=== PATIENT | female | born 1960 | race Caucasian/White ===

== ENCOUNTER 2017-03-20 13:30 | Observation (INO) | payer OTHER, SELFPAY ==
[~2017-03-20] VITALS: Ht 152.4 cm; Wt 66.1 kg
[2017-03-20] MEDS ORDERED: SODIUM CHLORIDE 0.9% 1,000 ML IV ONE (15:03)
[2017-03-20] MEDS ORDERED: SODIUM CHLORIDE 0.9% 1,000ML IVBOLUS ONE (15:30)
[2017-03-20] MEDS ORDERED: SODIUM CHLORIDE FLUSH 10ML SYR IVF ONE (15:30)
[2017-03-20 15:40] LABS: WHITE BLOOD COUNT 10.4 x10^3/uL (3.4-10)
[2017-03-20 15:49] LABS: BLOOD UREA NITROGEN 13 mg/dL (7-18)
[2017-03-20 15:55] LABS: ASPARTATE AMINO TRANSFERASE 14 U/L (15-37)
[2017-03-20 15:56] LABS: IS PT STATUS REG ER OR PRE ER? YES
[2017-03-20] MEDS: ALBUTEROL SULFATE 2.5 MG/3 ML NPPB SCH ×2 (16:53→17:14)
[2017-03-20] MEDS ORDERED: ALBUTEROL/IPRATROPIUM 2.5MG/0.5MG, 3 ML ONE (16:53)
[2017-03-20] MEDS ORDERED: IPRATROPIUM 0.5 MG/2.5 ML INHA NPPB ONE (17:00)
[2017-03-20] MEDS ORDERED: ALBUTEROL SULFATE 2.5 MG/3 ML ONE (17:09)
[2017-03-20] MEDS ORDERED: AZITHROMYCIN 500 MG in SODIUM CHLORIDE 0.9% 250 ML IV ONE (18:00)
[2017-03-20] MEDS ORDERED: EPINEPHRINE 1 MG/ML, 1ML ONE (18:59)
[2017-03-20] MEDS ORDERED: EPINEPHRINE SYRINGE 0.1 MG/ML, 10ML ONE (18:59)
[2017-03-20 22:12] VITALS: BP 140/63
[2017-03-20] MEDS ORDERED: DIPHENHYDRAMINE 25 MG CAPSULE PO PRN (23:00)
[2017-03-20] MEDS ORDERED: DOCUSATE 100 MG CAPSULE PO PRN (23:00)
[2017-03-20] MEDS ORDERED: ENALAPRILAT 1.25 MG/ML, 2ML IVPush PRN (23:00)
[2017-03-20] MEDS ORDERED: ENOXAPARIN 40 MG/0.4 ML SQ SCH (23:00)
[2017-03-20] MEDS ORDERED: ACETAMINOPHEN 325 MG TABLET PO PRN (23:00)
[2017-03-21] MEDS: CEFDINIR 300 MG CAPSULE PO SCH ×2 (00:06→08:46)
[2017-03-21 01:12] VITALS: BP 132/76
[2017-03-21 06:30] LABS: HEMATOCRIT 42.1 % (34.6-47.8); WHITE BLOOD COUNT 10.3 x10^3/uL (3.4-10)
[2017-03-21 06:45] LABS: BLOOD UREA NITROGEN 11 mg/dL (7-18)
[2017-03-21] MEDS ORDERED: ALBUTEROL/IPRATROPIUM 2.5MG/0.5MG, 3 ML NPPB SCH (07:00)
[2017-03-21 07:02] VITALS: BP 157/62
[2017-03-21] MEDS ORDERED: AZITHROMYCIN 250 MG TABLET PO SCH (09:00)
[2017-03-21] MEDS ORDERED: ALBUTEROL/IPRATROPIUM 2.5MG/0.5MG, 3 ML NPPB PRN (11:00)
[2017-03-21 13:10] VITALS: BP 128/61
[2017-03-21] MEDS ORDERED: ALBUTEROL SULFATE 2.5 MG/3 ML NPPB PRN (16:00)
[2017-03-21] MEDS ORDERED: CEFD300C37 PO (16:44)
[2017-03-21] MEDS ORDERED: AZIT250T89 PO (16:44)
[2017-03-21] MEDS ORDERED: PRED10TA PO (16:44)
[2017-03-21] MEDS ORDERED: PNEUMOCOCCAL 23 VACCINE IM-VACC ONE (17:30)
== END 2017-03-21 18:20 | disposition home or self-care (01) ==
LOC: ED 16:56 → EDIP 18:54 → INTOOBSV 18:54 → 4WST 21:24
PROVIDERS: ADMIT Internal Medicine; ATTEND Internal Medicine
DX: J15.9 Unspecified bacterial pneumonia (principal); J96.01 Acute respiratory failure with hypoxia; I16.0 Hypertensive urgency; J44.1 Chronic obstructive pulmonary disease with (acute) exacerbation; I10 Essential (primary) hypertension; F41.9 Anxiety disorder, unspecified; Z23 Encounter for immunization
CPT/HCPCS: 36415; 71010; 80048; 80053; 81003; 83605; 84484; 85025; 85379; 87040; 90471; 90732; 93005; 94640; 96361; 96365; 96366; 96372; 97162; 99285; G0378; J0456; J1650; J7030; J7050; J7512; J7613; J7620; J7644

== ENCOUNTER 2017-07-31 11:04 | Emergency (ER) | payer MEDICAID, OTHER ==
[~2017-07-31] VITALS: Ht 152.4 cm; Wt 63.4 kg
[~2017-07-31 11:04] MED LIST: AZIT250T89 PO; CEFD300C37 PO; PRED10TA PO
[2017-07-31] MEDS ORDERED: KETOROLAC 30 MG/1 ML ONE (12:14)
[2017-07-31] MEDS ORDERED: KETOROLAC 30 MG/1 ML IM ONE (12:30)
[2017-07-31 12:44] LABS: RAPID INFLUENZA A Negative (Negative); RAPID INFLUENZA B Negative (Negative)
[2017-07-31 13:21] VITALS: BP 154/66
== END 2017-07-31 13:23 | disposition home or self-care (01) ==
LOC: ED 13:17
DX: J40 Bronchitis, not specified as acute or chronic (principal); J06.9 Acute upper respiratory infection, unspecified; J44.9 Chronic obstructive pulmonary disease, unspecified; I10 Essential (primary) hypertension; Z87.891 Personal history of nicotine dependence
CPT/HCPCS: 71046; 87400; 96372; 99285; J1885

== ENCOUNTER 2017-10-30 23:24 | Emergency (ER) | payer SELFPAY ==
[~2017-10-30] VITALS: Ht 165.1 cm; Wt 65.0 kg
[2017-10-30] MEDS ORDERED: ALBUTEROL SULFATE 2.5 MG/3 ML ONE (23:48)
[2017-10-31] MEDS ORDERED: ALBUTEROL SULFATE 2.5 MG/3 ML NPPB ONE
[2017-10-31] MEDS ORDERED: AZITHROMYCIN 250 MG TABLET ONE (00:21)
[2017-10-31 00:24] VITALS: BP 154/63
[2017-10-31] MEDS ORDERED: AZITHROMYCIN 500 MG TABLET PO ONE (00:30)
== END 2017-10-31 00:30 | disposition home or self-care (01) ==
LOC: ED 10-31 00:10
DX: J98.01 Acute bronchospasm (principal); J06.9 Acute upper respiratory infection, unspecified; I10 Essential (primary) hypertension
CPT/HCPCS: 71045; 93005; 94640; 99284; J7512; J7613

== ENCOUNTER 2018-07-02 20:59 | Emergency (ER) | payer MEDICAID ==
[~2018-07-02] VITALS: Ht 137.2 cm; Wt 69.2 kg
[2018-07-02] MEDS ORDERED: ALBUTEROL/IPRATROPIUM 2.5MG/0.5MG, 3 ML ONE (21:39)
[2018-07-02] MEDS ORDERED: methylPREDNISolone SOD SUCC 125 MG/2 ML ONE (21:40)
[2018-07-02 21:44] VITALS: BP 167/63
[2018-07-02] MEDS ORDERED: ALBUTEROL/IPRATROPIUM 2.5MG/0.5MG, 3 ML NPPB ONE (22:00)
[2018-07-02] MEDS ORDERED: methylPREDNISolone SOD SUCC 125 MG/2 ML IVP ONE (22:00)
== END 2018-07-02 23:17 | disposition home or self-care (01) ==
LOC: ED 22:59
DX: J44.1 Chronic obstructive pulmonary disease with (acute) exacerbation (principal); I10 Essential (primary) hypertension; Z87.891 Personal history of nicotine dependence
CPT/HCPCS: 71045; 93005; 94640; 96374; 99283; J2930; J7620

== ENCOUNTER 2018-07-20 13:06 | Emergency (ER) | payer MEDICAID ==
[~2018-07-20] VITALS: Ht 152.4 cm; Wt 69.6 kg
--- NOTE | 2018-07-20 14:08 | NUR ---
Patient called from lobby, no answer.
[2018-07-20 14:10] LABS: ALANINE AMINOTRANSFERASE 25 U/L (12-78); ALBUMIN 4.2 g/dL (3.4-5.0); ANION GAP 5 mmol/L (5-15); CALCIUM 9.6 mg/dL (8.5-10.1); CHLORIDE 102 mmol/L (98-107); CREATININE 0.73 mg/dL (0.55-1.02)
[2018-07-20 14:13] LABS: ALKALINE PHOSPHATASE 104 U/L (45-117); BILIRUBIN,TOTAL 0.6 mg/dL (0.2-1.0); TOTAL PROTEIN 8.5 g/dL (6.4-8.2)
--- NOTE | 2018-07-20 14:15 | NUR ---
PT TO THE ROOM POST US
[2018-07-20 14:43] LABS: BASOPHILS # (AUTO) 0.02 x10^3/uL (0-0.1); BASOPHILS % (AUTO) 0 % (0-1); EOSINOPHILS # (AUTO) 0.55 x10^3/uL (0-0.4); EOSINOPHILS % (AUTO) 8 % (1-7); LYMPHOCYTES # (AUTO) 2.25 x10^3/uL (1-3.4); LYMPHOCYTES % (AUTO) 31 % (22-44); MD NO; MEAN CORPUSCULAR HEMOGLOBIN 27.5 pg (27.0-34.8); MEAN CORPUSCULAR HGB CONC 33.4 g/dL (32.4-35.8); MEAN CORPUSCULAR VOLUME 82.4 fL (80-100); MEAN PLATELET VOLUME 9.6 fL (7.4-10.4); MONOCYTES # (AUTO) 0.43 x10^3/uL (0.2-0.8); MONOCYTES % (AUTO) 6 % (2-9); NEUTROPHILS # (AUTO) 4.01 x10^3/uL (1.8-6.8); NEUTROPHILS % (AUTO) 55 % (42-75); PLATELET COUNT 259 x10^3/uL (130-400); RED BLOOD COUNT 4.86 x10^6/uL (3.82-5.3); RED CELL DISTRIBUTION WIDTH 13.3 % (9.6-15.2)
[2018-07-20 15:33] VITALS: BP 184/96
== END 2018-07-20 15:35 | disposition home or self-care (01) ==
LOC: ED 15:07
DX: N93.8 Other specified abnormal uterine and vaginal bleeding (principal); N95.0 Postmenopausal bleeding; J44.9 Chronic obstructive pulmonary disease, unspecified; I10 Essential (primary) hypertension; Z87.891 Personal history of nicotine dependence
CPT/HCPCS: 36415; 76856; 80053; 85025; 99284

== ENCOUNTER 2018-10-14 09:41 | Emergency (ER) | payer MEDICAID ==
[~2018-10-14] VITALS: Ht 152.4 cm; Wt 71.2 kg
[2018-10-14] MEDS ORDERED: KETOROLAC 30 MG/1 ML IM ONE (10:30)
[2018-10-14] MEDS ORDERED: KETOROLAC 30 MG/1 ML ONE (10:48)
[2018-10-14 12:56] VITALS: BP 141/76
--- NOTE | 2018-10-14 13:34 | NUR ---
Patient/Caregiver given discharge instructions and they have confirmed that they understand the instructions. Patient ambulatory with steady gait.
== END 2018-10-14 13:34 | disposition home or self-care (01) ==
LOC: ED 10:26
DX: M25.512 Pain in left shoulder (principal); J44.9 Chronic obstructive pulmonary disease, unspecified; I10 Essential (primary) hypertension
CPT/HCPCS: 73030; 93005; 96372; 99283; J1885

== ENCOUNTER 2019-06-28 17:36 | Emergency (ER) | payer MEDICAID ==
[~2019-06-28] VITALS: Ht 144.8 cm; Wt 64.9 kg
--- NOTE | 2019-06-28 17:46 | NUR ---
FORMULA CHECKER: EKG COMPLETED IN TRIAGE.
[2019-06-28] MEDS ORDERED: TIOT4MIS5 INH (17:57)
[2019-06-28] MEDS ORDERED: MELA3TAB56 PO (17:57)
[2019-06-28] MEDS ORDERED: BUSP7.5T3 PO (17:57)
[2019-06-28] MEDS ORDERED: ASPIRIN 81 MG TABLET CHEW PO ONE (18:00)
--- NOTE | 2019-06-28 18:00 | NUR ---
PT RESTING QUIETLY ON BED, RESP EVEN & UNLABORED, SPEECH CLEAR, SKIN WNL, [employer] COORDINATOR ON: NSR. DAUGHTER AT BS. PT ALERT, ORIENTED TO NAME ONLY - UNABLE TO STATED , MONTH, PLACE, DAUGHTER'S NAME. PER DAUGHTER, PT HAS DEMENTIA AND HAS BEEN UNUSUALLY ANGRY FOR 2 DAYS; TODAY, BECAME VERY ANGRY AND EXPERIENCED SOB. DAUGHTER: JAH CAMPBELL. PT HAS TAKEN ONLY HER USUAL MEDS TODAY. PT ATE A SMALL AMT OF BREAKFAST TODAY; NO LUNCH.
--- NOTE | 2019-06-28 18:09 | NUR ---
CXR DONE. LAB AT BS
[2019-06-28 18:16] LABS: BASOPHILS # (AUTO) 0.05 x10^3/uL (0-0.1); BASOPHILS % (AUTO) 1 % (0-1); EOSINOPHILS # (AUTO) 0.55 x10^3/uL (0-0.4); EOSINOPHILS % (AUTO) 7 % (1-7); LYMPHOCYTES # (AUTO) 2.16 x10^3/uL (1-3.4); LYMPHOCYTES % (AUTO) 26 % (22-44); MD NO; MEAN CORPUSCULAR HEMOGLOBIN 27.6 pg (27.0-34.8); MEAN CORPUSCULAR HGB CONC 33.1 g/dL (32.4-35.8); MEAN CORPUSCULAR VOLUME 83.4 fL (80-100); MEAN PLATELET VOLUME 7.9 fL (7.4-10.4); MONOCYTES # (AUTO) 0.44 x10^3/uL (0.2-0.8); MONOCYTES % (AUTO) 5 % (2-9); NEUTROPHILS # (AUTO) 5.16 x10^3/uL (1.8-6.8); NEUTROPHILS % (AUTO) 62 % (42-75); PLATELET COUNT 366 x10^3/uL (130-400); RED BLOOD COUNT 4.79 x10^6/uL (3.82-5.3); RED CELL DISTRIBUTION WIDTH 13.5 % (9.6-15.2)
[2019-06-28 18:29] LABS: ALBUMIN 4.2 g/dL (3.4-5.0); ANION GAP 6 mmol/L (5-15); CALCIUM 9.3 mg/dL (8.5-10.1); CHLORIDE 102 mmol/L (98-107); CREATININE 0.66 mg/dL (0.55-1.02)
[2019-06-28 18:33] LABS: T4 (THYROXINE) 13.1 mcg/dL (4.8-13.9); TROPONIN I < 0.015 ng/mL (0.000-0.045)
[2019-06-28] MEDS ORDERED: ASPIRIN 81 MG TABLET CHEW ONE (19:44)
--- NOTE | 2019-06-28 19:47 | NUR ---
TASK RN: PT. MEDICATED PER MAR AND VERBALIZED UNDERSTANDING OF ALL D/C INSTRUCTIONS. FAMILY WITH PT. TO D/C DESK. PT. ABLE TO FULLY DRESSS SELF AND AMBULATE WITH STEADY GAIT.
[2019-06-28 19:48] VITALS: BP 155/96
== END 2019-06-28 19:51 | disposition home or self-care (01) ==
LOC: ED 18:17
DX: G30.0 Alzheimer's disease with early onset (principal); R07.2 Precordial pain; F02.81 Dementia in other diseases classified elsewhere, unspecified severity, with behavioral disturbance; F41.1 Generalized anxiety disorder; J44.9 Chronic obstructive pulmonary disease, unspecified; I10 Essential (primary) hypertension; Z87.891 Personal history of nicotine dependence
CPT/HCPCS: 36415; 71045; 80048; 82040; 84436; 84443; 84484; 85025; 93005; 99284